=== PATIENT | male | born 1960 | race Caucasian/White ===

== ENCOUNTER 2023-07-28 11:55 | Emergency (ER) | payer OTHER, SELFPAY ==
--- NOTE | ~2023-07-28 | XR_ITS ---
EXAMINATION: Chest with left RIBS. Left hand. CLINICAL INDICATIONS: Status post fall with pain in left hand and left RIBS. COMPARISON: None. TECHNIQUE: Left hand 3 views. Chest and left RIBS 4 views. FINDINGS: Chest: The lungs are well-expanded and clear of acute process. There is no pleural effusion or pneumothorax. The heart size and pulmonary vascularity is normal. Is mild spondylosis dorsal spine. Left RIBS: Multiple views of left ribs with a lead marker in the left lower chest reveals no visible acute fracture or bony abnormality. The soft tissues are normal. Left hand: There is mild loss of PIP and DIP joint space without bony erosive changes. There is mild periarticular spurring DIP joint fifth digit. There is a radiopaque foreign body or calcification in the volar and lateral soft tissues of distal phalanx second digit. No fracture or dislocation seen on the present exam. XR/XR ribs LT min 3V w CXR1V IMPRESSION: Unremarkable chest exam. Unremarkable left rib exam. Unremarkable left hand exam.
--- NOTE | ~2023-07-28 | CT_ITS ---
Examination: CT brain and CT cervical spine without IV contrast. Clinical indications: Fall yesterday with syncope. COMPARISON: None. TECHNIQUE: 5 mm thin axial and reformatted 2 mm thin sagittal and coronal images of brain were obtained. Subsequently axial 3 mm thin and reformatted 2 mm thin sagittal and coronal images of cervical spine were obtained. DLP [id number]. This CT examination was performed using dose optimization technique as appropriate, variously including the following: Automated exposure control Adjustment of MA and/or KV according to patient size(this includes techniques or standardized protocols for targeted exams where dose is matched to indication/reason for exam; extremities or head. Use of iterative reconstruction techniques. FINDINGS: Brain: There is no acute intra-axial, extra-axial bleed, masses or midline shift. There is no acute infarction in evolution. There is no edema. The grimes to white matter differentiation is maintained normal. The lateral ventricles are symmetrical in size and configuration without enlargement. Bone windows reveal no calvarial abnormality. There is a left posterior parietal scalp contusion or hemorrhage.. Bilateral paranasal sinuses and mastoid air cells are well-aerated. Cervical spine: There is maintained cervical lordosis. The vertebral heights, alignment and disc heights are normal. The craniovertebral junction and C1-C2 alignment is normal. No visible acute fracture, dislocation subluxation seen. The craniovertebral junction and the C1-C2 alignment is normal. The prevertebral and paravertebral soft tissues are normal. CT/CT cervical spine wo IV con IMPRESSION: 1. No acute intracranial process seen. 2. There is a left posterior parietal scalp contusion or hemorrhage. No calvarial fracture. 3. There is no acute fracture, dislocation or subluxation in cervical spine.
--- NOTE | ~2023-07-28 | XR_ITS ---
EXAMINATION: Chest with left RIBS. Left hand. CLINICAL INDICATIONS: Status post fall with pain in left hand and left RIBS. COMPARISON: None. TECHNIQUE: Left hand 3 views. Chest and left RIBS 4 views. FINDINGS: Chest: The lungs are well-expanded and clear of acute process. There is no pleural effusion or pneumothorax. The heart size and pulmonary vascularity is normal. Is mild spondylosis dorsal spine. Left RIBS: Multiple views of left ribs with a lead marker in the left lower chest reveals no visible acute fracture or bony abnormality. The soft tissues are normal. Left hand: There is mild loss of PIP and DIP joint space without bony erosive changes. There is mild periarticular spurring DIP joint fifth digit. There is a radiopaque foreign body or calcification in the volar and lateral soft tissues of distal phalanx second digit. No fracture or dislocation seen on the present exam. XR/XR hand LT min 3V IMPRESSION: Unremarkable chest exam. Unremarkable left rib exam. Unremarkable left hand exam.
--- NOTE | ~2023-07-28 | CT_ITS ---
EXAMINATION: CT chest and CT abdomen pelvis with IV contrast. CLINICAL INDICATION: Left upper quadrant pain status post fall and left side.. Left chest wall tenderness. COMPARISON: None. TECHNIQUE: 5 mm thin axial and reformatted 3 mm thin sagittal and coronal images of chest, abdomen pelvis were obtained following IV 85 metal Omnipaque 350. DLP 1157. This CT examination was performed using dose optimization technique as appropriate, variously including the following: Automated exposure control Adjustment of MA and/or KV according to patient size(this includes techniques or standardized protocols for targeted exams where dose is matched to indication/reason for exam; extremities or head. Use of iterative reconstruction techniques. FINDINGS: CHEST: LUNGS: Both lungs are fairly well-expanded and clear of acute pneumonic process. There is minimal platelike atelectatic changes in both lower lobes. There is no lung mass, consolidation or nodules. Mediastinum: The thyroid lobes are symmetric and normal. The central trachea and the bronchi is widely patent. Heart size and the great vessels are normal caliber. No abnormal size mediastinal lymph nodes or mass seen. No pericardial effusion. Pleura: There is minimal left posterior pleural thickening but no evidence of effusion or pneumothorax. Axilla and chest wall: No abnormal size axillary lymph nodes seen. The chest wall appears unremarkable. Osseous structures: There is maintained thoracic kyphosis. There is no visible vertebral fracture, subluxation or dislocation. There is T8 left vertebral body hypodensity likely small hemangioma. There is no fracture or bony thorax or the ribs. Abdomen and pelvis: Liver, ducts and gallbladder: The liver is homogeneous in density, normal size, contour. No focal lesion or intrahepatic ductal dilatation seen. There are multiple dependent radiopaque gallstones without wall thickening. Spleen: Unremarkable. Pancreas: Unremarkable. Adrenal glands: Unremarkable. Kidneys and ureter: Both kidneys are normal size, shape and position. No contusion or, laceration or perinephric hematoma seen. There are nonenhancing bilateral small hypodensities favoring cyst. No perinephric stranding seen. Lymphovascular structures: Abdominal aorta is of normal caliber. No retroperitoneal lymph nodes or mass seen. There are bilateral 2 renal arteries GI tract: There is moderate stool in the colon without distention. The small bowel loops are normal caliber. Appendix is normal caliber.. Abdominal wall: There is a small umbilical hernia containing fat is noted. Pelvis: The bladder is nondistended. The prostate gland is normal size. No inflammatory process of free air seen in the pelvis. Osseous structures: There is mild spondylosis ventral lower dorsal and upper lumbar spine. No fracture or dislocation seen. CT/CT abdomen pelvis w IV con IMPRESSION: No acute process seen in the lungs, abdomen pelvis. Gallstones and bilateral renal cysts. Small umbilical hernia with mild constipation.
--- NOTE | 2023-07-28 12:04 | ED_ITS ---
HPI - Fall General Chief Complaint: Fall Stated Complaint: fell 07/25, rib pain Time Seen by Provider: 07/28/23 12:03 Source: patient Mode of arrival: ambulatory Limitations: no limitations History of Present Illness HPI Narrative: 63 y o male presenting for evaluation of L sided rib pain and hand pain s/p fall yesterday 2 around 6:30. He reports he fell approximately 6-7 feet from a ladder which moved while he was on it. Denies HS, no blood thinners. Reports he fell onto he left arm and left side, now reporting left sided rib pain worse with inspiration, left hand pain, and abrasions to the left arm. He also reports that immediately after the fall he felt short of breath and was breathing so quick I passed out . Now complaining of some chest discomfort/rib discomfort and difficultly with taking a deep breath. No history of syncopal episodes per patient. Since the event, he has been applying topical Neosporin to the abrasions. He also reports worsening pain of the left ribs which is exacerbated by deep breathing and raising his arms above his head, better with rest. Reports the L hand pain worsens with movement. No preceding symptoms to fall such as cp and shortness of breath. Denies any fevers, confusion, additional syncopal episodes or dizziness, nausea, vomiting, diarrhea, lack of appetite, early satiety, numbness or tingling. Related Data Previous Rx's Medication Instructions Recorded ketorolac 10 mg tablet 10 mg PO TID PRN pain 5 days #15 07/28/23 tabs lidocaine 5 % topical patch 1 patch topical DAILY PRN pain #15 07/28/23 ea morphine 15 mg immediate release 15 mg PO Q6H PRN pain 5 days #10 07/28/23 tablet tabs Allergies Allergy/AdvReac Type Severity Reaction Status Date / Time No Known Allergies Allergy Verified 07/28/23 12:04 Review of Systems 2 Review of Systems: Constitutional : No Weight loss, No Fever, No Chills, No Fatigue, No Malaise Cardiovascular : + Chest Pain, + SOB, No Dyspnea on Exertion, No Orthopnea, No Edema, No Palpitations Respiratory : No Cough, No Sputum, No Wheezing Gastrointestinal : No Nausea, No Vomiting, No Diarrhea, No Constipation, No abdominal Pain, No Hematochezia, No Melena Genitourinary : No Dysuria, No Urinary Frequency, No Hematuria, Musculoskeletal : + joint pain, No Myalgias, + Joint Swelling Skin : No Skin Lesions, No rash, +abrasions Neuro : No Weakness, No Numbness, No Dizziness, No Headache Psych : No Anxiety/Panic, No Depression All other systems reviewed and are negative Yes all other systems are reviewed and are negative FOR[facility]LY [facility] Past Medical History Attestation statement: The following information was validated with the patient. Source: old records reviewed and nursing notes reviewed Social History Social History Advance Directives: No Advance Directives Information Provided: Yes Physical Exam 2 Vital Signs: Vital Signs: Last Vital Signs Temp 97.5 F 07/28/23 16:36 Pulse 73 07/28/23 16:36 Resp 18 07/28/23 16:36 BP 122/62 07/28/23 16:36 Pulse Ox 93 07/28/23 16:36 O2 Del Method Room Air 07/28/23 16:36 BMI result Body Mass Index 34.6 VSS Appearance: Alert.? Oriented X3.? No acute distress.? Head: Normocephalic, atraumatic, no step-offs or deformities Eyes: Pupils equal, round and reactive to light.? EOMI pain free Neck: Normal inspection.? Neck supple.? CVS: Normal heart rate and rhythm.? Pulses normal.?+TTP to the L ribs from the lateral aspect into the anterior chest wall with overlying abrasions. No crepitus or deformities. Respiratory: No respiratory distress.? Breath sounds normal, CTAB and present within all block. Abdomen: Soft, mild TTP to the LUQ, otherwise nontender. No rebound or guarding. No peritoneal signs. Skin: Skin warm and dry.? Normal skin color.? Normal skin turgor.?Two 9cm abrasions to the chest wall extending from the mid axillary line to the anterior abdomen with no active bleeding, purulent drainage or extending erythema. Additional 9cm abrasion noted to the posterior aspect of the L arm extending from the axilla to the olecranon and a 2cm abrasion just distal to the olecranon on the L posterior forearm with no active bleeding, purulent drainage or extending erythema. Extremities: No lower extremity edema.? No calf ttp. 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 Full ROM of the shoulders and elbows b/l, full ROM of the R wrist, ROM of the L wrist flexion and extension limited secondary to pain. Edema noted to the dorsal aspect of the L hand without overlying skin changes. +TTP to the L 2-4 metacarpals, no TTP to the L carpals or phalanges. Gross sensation in tact, cap refill <2 s, 2+ radial and ulnar pulses b/l. no wrist drop b/l Back: No midline tenderness, no C-spine tenderness, full range of motion, no CVA tenderness bilaterally Neuro: Oriented X 3.? No motor deficit.? No sensory deficit. CN 2-12 intact . Ambulatory w/ steadygait normal coordination NIH Stroke Scale Internal: Initial- Upon Arrival Time: 13:30 Level of Consciousness: Alert Level of Consciousness Questions: Answers both questions correctly Level of Consciousness Commands: Performs both tasks correctly Best Gaze: Normal Visual: No visual loss Facial Palsy: Normal Motor Arm (Right): No drift Motor Arm (Left): No drift Motor Leg (Right): No drift Motor Leg (Left): No drift Limb Ataxia: Absent Sensory: Normal Best Language: No aphasia Dysarthia: Normal Extinction and Inattention: No abnormality Score: 0 Course Course Course Narrative: This is an RME: Additional HPI, ROS, PE not included below will be deferred to primary provider. Patient is a 63-year-old male who presents emergency department for evaluation after a fall. Yesterday he fell approximately 6-7 feet of a ladder landing on his left side. Abdominal pain bruising, pain to the left hand and wrist with decreased AROM. Acute he was able to get up initially after the fall took a few steps and then lost consciousness subsequently falling again. Denies headache, dizziness, lighheadedness, neck pain, numbness or tingling of the extremities. PE: PERRL. No midline cervical spine tenderness, step-offs, deformities. Significant left upper ABD tenderness upon palpation with abrasions and erythema, no rigidity or guarding. LSCTA bilaterally Plan: imaging Reevaluation(s) Reevaluation #1: Family showed video of MICHELA demonstrating a mechanical fall directly onto L side w/o HS, patient stood up afterwards and then syncopized. Due to MICHELA, will order trauma scans and cardiac enzymes to rule out trauma to the head, neck, chest, abdomen and pelvis and cardiac contribution to syncope. Patient well-appearing, ambulating with steady gait, GCS 15, NIH 0 Time: 13:45 Reevaluation #2: On my evaluation of patient's CT scan I was able to visualize rib fractures to left ribs 8 9 and 11. Geraldo will add addendum after reviewing imaging Time: 16:57 Reevaluation #3: Patient is noted to have rib fractures on imaging, patient will be given incentive spirometer. I did explain to patient that we should keep in the hospital however he does not want to be kept for observation he would like to go home. He did on worrisome signs and symptoms and when to return. At this time patient will be discharged home. I did discuss this case with my attending who states syncope likely secondary to vasovagal/pain response, no preceding symptoms of fall likely mechanical fall. No signs of splenic lack or solid organ injuries on imaging. Educated patient on diagnosis and treatment plan, answered all question, patient verbalizes understanding. At this time patient will be discharged home, advised to return with new or worsening symptoms. Educated on worrisome signs and symptoms and when to return. At this time I feel comfortable discharge home. Time: 16:57 Medications Administered Discontinued Medications Generic Name Dose Route Start Last Admin Trade Name Freq PRN Reason Stop Dose Admin Iohexol 85 ml 07/28/23 14:33 07/28/23 14:36 Iohexol 350 Mg/Ml 100 Ml Infus..Btl IV 07/28/23 14:34 85 ml ONCE ONE Administration Ketorolac Tromethamine 30 mg 07/28/23 13:06 07/28/23 13:14 Ketorolac Tromethamine 30 Mg/Ml Vial IM 07/28/23 13:07 30 mg ONCE ONE Administration Morphine Sulfate 4 mg 07/28/23 15:19 07/28/23 16:00 Morphine Sulfate 4 Mg/Ml Cartridge IVPUSH 07/28/23 15:20 4 mg ONCE ONE Administration Protocol Medical Decision Making Medical Decision Making MDM Narrative: 63 y o male presenting for evaluation of L sided pain s/p fall off 7ft ladder yesterday with syncope immediately after the fall, no HS, no thinners. Family showed video of MICHELA demonstrating a mechanical fall directly onto L side w/o HS, patient stood up afterwards and then syncopized. +TTP to the L ribs from the lateral aspect into the anterior chest wall with overlying abrasions. No crepitus or deformities. Breath sounds normal, CTAB and present within all block. Two 9cm abrasions to the chest wall extending from the mid axillary line to the anterior abdomen with no active bleeding, purulent drainage or extending erythema. Additional 9cm abrasion noted to the posterior aspect of the L arm extending from the axilla to the olecranon and a 2cm abrasion just distal to the olecranon on the L posterior forearm with no active bleeding, purulent drainage or extending erythema. 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 Full ROM of the shoulders and elbows b/l, full ROM of the R wrist, ROM of the L wrist flexion and extension limited secondary to pain. Edema noted to the dorsal aspect of the L hand without overlying skin changes. +TTP to the L 2-4 metacarpals, no TTP to the L carpals or phalanges. Gross sensation in tact, cap refill <2 s, 2+ radial and ulnar pulses b/l, no wrist drop b/l NIH 0 GCS 15 Possible rib fractures vs hematoma vs localized chest wall tenderness. Breathing unlabored with lungs CTAB in all block. Will rule out pneumothorax and chest wall injuries with CT. Abrasions likely simple and undergoing secondary healing, no active bleeding, no exudative drainage, warmth or extending erythema, no concern at this time for overlying cellulitis or infection. Hand pain possible fracture vs dislocation vs hematoma vs musculoskeletal pain. No acute threat to limb, neurovascularly intact, no sign of infection or nerve impingement. Will rule out trauma to head, neck, chest, abdomen, and pelvis with imaging. Due to location of injury will rule out splenic lac/injury. Differential Diagnosis Differential Diagnoses: The differential diagnosis associated with the presentation includes Possible rib fractures vs hematoma vs localized chest wall tenderness. Breathing unlabored with lungs CTAB in all block. Will rule out pneumothorax and chest wall injuries with CT. Abrasions likely simple and undergoing secondary healing, no active bleeding, no exudative drainage, warmth or extending erythema, no concern at this time for overlying cellulitis or infection. Hand pain possible fracture vs dislocation vs hematoma vs musculoskeletal pain. No acute threat to limb, neurovascularly intact, no sign of infection or nerve impingement. Will rule out trauma to head, neck, chest, abdomen, and pelvis with imaging. Due to location of injury will rule out splenic lac/injury. Admission/Observation Consideration of admission/observation: Escalation of care including admission/observation considered Possible Lab Data MDM Lab Attestation statement: I reviewed the patient's lab results. 07/28/23 13:56 07/28/23 13:56 Labs: Lab Results 07/28/23 Range/Units 13:56 WBC 8.9 (4.8-10.8) X10*3/uL RBC 4.72 (4.60-5.80) X10*6/uL Hgb 14.2 (14.0-18.0) g/dl Hct 40.3 L (42.0-52.0) % MCV 85.4 (80.0-98.0) fL MCH 30.1 (27.0-33.0) pg MCHC 35.2 (31.0-36.0) g/dl RDW 12.1 (11.0-16.0) % Plt Count 271 (160-400) X10*3/uL MPV 9.3 L (9.4-12.4) fL Immature Gran % (Auto) 0.4 (0.0-0.4) % Neut % (Auto) 52.0 (45-73) % Lymph % (Auto) 36.5 (20-40) % [place] % (Auto) 9.9 (2-11) % Eos % (Auto) 0.8 (0-4) % Baso % (Auto) 0.4 (0-2) % Lymph # (Auto) 3.3 (1.2-4.9) X10*3/uL [place] # (Auto) 0.9 (0.1-1.2) X10*3/uL Eos # (Auto) 0.1 (0.0-0.4) X10*3/uL Baso # (Auto) 0.0 (0.0-0.2) X10*3/uL Abs Immat Gran (auto) 0.04 H (0.00-0.03) X10*3/uL Absolute Neuts (auto) 4.6 (2.0-8.3) x10*3/uL Absolute Nucleated RBC 0.000 (0.0-0.012) X10*3/uL Nucleated RBC % (auto) 0.0 (0.0-0.2) /100WBC PT 11.5 (11.1-13.3) SEC INR 0.9 (0.9-1.1) Sodium 138 (135-145) mmol/L Potassium 3.9 (3.3-5.1) mmol/L Chloride 106 (96-108) mmol/L Carbon Dioxide 20 L (22-29) mmol/L Anion Gap 16 (12-20) BUN 14 (9-16) mg/dL Creatinine 0.86 (0.5-1.4) mg/dL Estim Creat Clear Calc 106.9 Estimated GFR > 60 Random Glucose 335 H (60-115) mg/dL Calcium 9.2 (8.4-10.2) mg/dL Total Bilirubin 0.6 (0.0-1.0) mg/dL AST 21 (5-37) U/L ALT 19 (0-40) U/L Alkaline Phosphatase 95 (39-117) U/L Troponin I High Sens < 2.7 (<3.5-35.0) ng/L Total Protein 7.2 (6.5-8.0) g/dL Albumin 4.1 (3.5-5.0) g/dL Independent Interpretation I performed an independent interpretation of an: EKG, Plain X-Ray and CT Scan Radiology Impression Discussion of test interpretation with radiology: I have reviewed the radiologist's reading. External Record Review External record reviewed: Inpatient record and Outpatient record Prescription Management I considered prescription management with: Pain Medication Critical Care Time Critical Care Time Critical Care Time: Yes Total Critical Care Time: 35 Attestation: I attest to this time spent taking care of the patient, obtaining history, physical, reviewing labs, imaging, speaking to my attending, speaking to specialist. Discharge Plan Discharge Clinical Impression: Fall, Rib pain on left side, Hematoma of occipital region of scalp, Hand pain, left, Abrasion Patient Disposition: Home, Self-Care Instructions: Chest Pain (ED), Fall Prevention for Older Adults (ED), Arthralgia (ED), Fall Prevention (ED) Additional Instructions: Take your medications as prescribed. If you were prescribed antibiotics today, it is important that you take your medication to their entirety, do not skip any doses, do not finish them early. Follow-up with your primary care provider this week. Return to the emergency department with new or worsening symptoms. Such as fevers, chills, chest pain, shortness of breath, nausea, vomiting, dizziness, headache, vision changes, lethargy In case of emergency call 911 A narcotic has been sent to your pharmacy please take this as prescribed. Do not take more than the prescribed dose. Narcotic medications can cause addiction. Please do not mix them with alcohol. Do not take them while driving or operating machinery. Do not take them with any other narcotics. Do not share them with friends or family. They can cause constipation. Take them only for severe pain. Prescriptions: New ketorolac 10 mg tablet 10 mg PO TID PRN (Reason: pain) 5 Days Qty: 15 0RF morphine 15 mg tablet 15 mg PO Q6H PRN (Reason: pain) 5 Days Qty: 10 0RF Rx Instructions: Partial Fill upon patient request. lidocaine 5 % adhesive patch,medicated 1 patch topical DAILY PRN (Reason: pain) Qty: 15 0RF Rx Instructions: leave on most painful area for up to 12 hrs Referrals: Physician,None [Primary Care Provider] - 2 days Stand Alone Forms: Work/School Release
[2023-07-28 12:05] VITALS: BP 136/85; PULSE 77; RESP 18; TEMP 36.8; O2SAT 98; BMI 34.6
[2023-07-28] MEDS: Ketorolac Tromethamine 30 MG/ML VIAL IM (13:14)
--- NOTE | 2023-07-28 13:29 | ECG_ITS ---
Test Reason : syncope Blood Pressure : / mmHG Vent. Rate : 076 BPM Atrial Rate : 076 BPM P-R Int : 162 ms QRS Dur : 112 ms QT Int : 388 ms P-R-T Axes : 036 -23 029 degrees QTc Int : 436 ms Normal sinus rhythm Normal ECG No previous ECGs available Referred By: Marcello Munoz Electronically Signed By:EZEQUIEL VALDOVINOS
[2023-07-28 14:01] LABS: MANUAL DIFF FLAG NO
[2023-07-28 14:03] LABS: Basophils Percent Auto 0.4 % (0-2); Eosinophils Absolute Auto 0.1 X10*3/uL (0.0-0.4); Eosinophils Percent Auto 0.8 % (0-4); Hematocrit 40.3 % (42.0-52.0); Hemoglobin 14.2 g/dl (14.0-18.0); Imm Gran Abs Auto 0.04 X10*3/uL (0.00-0.03); Imm Gran Pct Auto 0.4 % (0.0-0.4); Lymphocytes Absolute Auto 3.3 X10*3/uL (1.2-4.9); Lymphocytes Percent Auto 36.5 % (20-40); Mean Corpuscular HGB Conc 35.2 g/dl (31.0-36.0); Mean Corpuscular Hemoglobin 30.1 pg (27.0-33.0); Mean Corpuscular Volume 85.4 fL (80.0-98.0); Mean Platelet Volume 9.3 fL (9.4-12.4); Monocytes Absolute Auto 0.9 X10*3/uL (0.1-1.2); Monocytes Percent Auto 9.9 % (2-11); Neutrophils Absolute Auto 4.6 x10*3/uL (2.0-8.3); Platelet Count 271 X10*3/uL (160-400); Red Blood Count 4.72 X10*6/uL (4.60-5.80); Red Cell Distribution Width 12.1 % (11.0-16.0); White Blood Count 8.9 X10*3/uL (4.8-10.8)
[2023-07-28 14:12] LABS: INTERNATIONAL NORM RATIO 0.9 (0.9-1.1); Prothrombin Time 11.5 SEC (11.1-13.3)
[2023-07-28 14:22] LABS: Alanine Aminotransferase 19 U/L (0-40); Albumin Level 4.1 g/dL (3.5-5.0); Alkaline Phosphatase 95 U/L (39-117); Anion Gap 16 (12-20); Aspartate Amino Transferase 21 U/L (5-37); Bilirubin Total 0.6 mg/dL (0.0-1.0); Blood Urea Nitrogen 14 mg/dL (9-16); Calcium 9.2 mg/dL (8.4-10.2); Carbon Dioxide 20 mmol/L (22-29); Chloride 106 mmol/L (96-108); Creatinine Clr Calc Pharmacy 106.9; Estimated Glomerular Filt Rate > 60; Glucose Random 335 mg/dL (60-115); Potassium 3.9 mmol/L (3.3-5.1); Sodium 138 mmol/L (135-145); Total Protein 7.2 g/dL (6.5-8.0)
[2023-07-28 14:33] LABS: Troponin-I High Sensitivity < 2.7 ng/L (<3.5-35.0)
[2023-07-28] MEDS: iohexoL 350 MG/ML 100 ML INFUS..BTL 85 ML IV (14:36)
[2023-07-28 14:52] VITALS: BP 134/74; PULSE 72; RESP 16; TEMP 36.7; O2SAT 97
[2023-07-28 16:00] VITALS: RESP 16
[2023-07-28] MEDS: Morphine Sulfate 4 MG/ML CARTRIDGE IVPUSH (16:00)
[2023-07-28 16:36] VITALS: BP 122/62; PULSE 73; RESP 18; TEMP 36.4; O2SAT 93
== END 2023-07-28 17:21 | disposition home or self-care (01) ==
PROVIDERS: Physician Assistant; Emergency Provider Emergency Medicine Emergency Medical Services
DX: S22.42XA Multiple fractures of ribs, left side, initial encounter for closed fracture (principal); S00.03XA Contusion of scalp, initial encounter; S60.222A Contusion of left hand, initial encounter; S40.812A Abrasion of left upper arm, initial encounter; S20.313A Abrasion of bilateral front wall of thorax, initial encounter; W11.XXXA Fall on and from ladder, initial encounter; Y93.9 Activity, unspecified; Y92.9 Unspecified place or not applicable; Y99.9 Unspecified external cause status
CPT/HCPCS: 36415; 70450; 71101; 71260; 72125; 73130; 74177; 80053; 84484; 85025; 85610; 93005; 94010; 96372; 96374; 99284; J1885; J2270; Q9967